=== PATIENT | male | born 1960 | race Caucasian/White ===

== ENCOUNTER 2021-09-14 21:07 | Emergency (ER) | payer MEDICARE, MEDICAID ==
[~2021-09-14] VITALS: Ht 167.6 cm; Wt 50.0 kg
[2021-09-14 21:22] LABS: ABG BASE EXCESS 27.4 mmol/L (-2.0-3.0); ABG CARBOXYHEMOGLOBIN 0.5 % (0.0-1.5); ABG HCO3 46.9 mmol/L (22.0-26.0); ABG METHEMOGLOBIN 0.4 % (0.0-1.5); ABG OXYGEN CONTENT 14.3 mL/dL (15.0-23.0); ABG OXYHEMOGLOBIN 95.1 % (94.0-100.0); ABG PH 7.245 (7.35-7.450); ABG TOTAL HEMOGLOBIN 10.6 G/dL (12.0-18.0); PO2, ARTERIAL BG 93.2 mmHg (79.0-87.0); SOURCE, BLOOD GAS ARTERIAL; TEMPERATURE, FAHRENHEIT, BG 98.6 FAHREN (96.0-98.6)
[2021-09-14 21:24] LABS: ABG PCO2 129 mmHg (35-45); SITE, BLOOD GAS RT RADIAL
[2021-09-14 21:25] LABS: O2 DEVICE,BLOOD GAS VENTILATOR (ROOM AIR); PEEP,BG 5 cm H2O; VT, ABG 350 ml
[2021-09-14 21:26] LABS: BASOPHILS % (AUTO) 0.4 % (0.0-2.0); EOSINOPHILS % (AUTO) 0.5 % (1.0-6.0); HEMATOCRIT 30.4 % (41-53); HEMOGLOBIN 9.8 g/dL (13.5-17.5); LYMPHOCYTES # (AUTO) 0.6 K/uL (1.0-4.8); LYMPHOCYTES % (AUTO) 6.9 % (22.0-44.0); MEAN CORPUSCULAR HEMOGLOBIN 26.6 pg (26.0-34.0); MEAN CORPUSCULAR HGB CONC 32.2 G/dL (31.0-37.0); MEAN CORPUSCULAR VOLUME 83 fL (80-100); MONOCYTES # (AUTO) 0.6 K/uL (0.1-1.0); MONOCYTES % (AUTO) 7.2 % (2.0-9.0); NEUTROPHILS # (AUTO) 6.8 K/uL (1.8-7.7); PLATELET COUNT (AUTO) 198 K/uL (150-450); RED BLOOD CELL COUNT(AUTO) 3.67 MIL/uL (4.50-5.90); RED CELL DISTRIBUTION WIDTH 20.2 % (11.5-14.5)
[2021-09-14 21:32] LABS: CALCIUM, TOTAL 10.6 mg/dL (8.8-10.5); CHLORIDE 92 mmol/L (98-107); CREATININE 0.33 mg/dL (0.60-1.30); GLUCOSE,RANDOM 213 mg/dL (70-110); POTASSIUM 4.3 mmol/L (3.5-5.1); SODIUM SERUM 137 mmol/L (136-145); UREA NITROGEN, BLOOD 23 mg/dL (7-18)
[2021-09-14 21:35] LABS: PROTHROMBIN TIME 10.9 SEC (9.4-11.6)
[2021-09-14 21:41] LABS: ALANINE AMINOTRANSFERASE 17 U/L (12-78); ALBUMIN 2.1 g/dL (3.4-5.0); ALKALINE PHOSPHATASE 116 U/L (46-116); ASPARTATE AMINOTRANSFERASE 18 U/L (15-37); BILIRUBIN,TOTAL 0.2 mg/dL (0.1-1.0); TOTAL PROTEIN, SERUM 7.8 g/dL (6.4-8.2)
[2021-09-14 22:03] LABS: ANION GAP -5 mmol/L (8-16); GLOMERULAR FILTR. RATE CALC > 60 mL/min (>60)
[2021-09-14 22:06] LABS: CARBON DIOXIDE 50 mmol/L (22-29)
[2021-09-14] MEDS ORDERED: ASCO-360 PO (23:04)
[2021-09-14] MEDS ORDERED: PRED10 GT (23:04)
[2021-09-14] MEDS ORDERED: FE RC (23:04)
[2021-09-14] MEDS ORDERED: INSLAN SQ (23:04)
[2021-09-14] MEDS ORDERED: ACET-784 GT (23:04)
[2021-09-14] MEDS ORDERED: SENN8.8S18 GT (23:04)
[2021-09-14] MEDS ORDERED: CIPR1DRO2 AD (23:04)
[2021-09-14] MEDS ORDERED: MOM30 PO (23:04)
[2021-09-14] MEDS ORDERED: FERSL PO (23:04)
[2021-09-14] MEDS ORDERED: MULT-700 PO (23:04)
[2021-09-14] MEDS ORDERED: FAMO20 PO (23:04)
[2021-09-14] MEDS ORDERED: COLL30OI TP (23:04)
[2021-09-14] MEDS ORDERED: METO25 PO (23:04)
[2021-09-14] MEDS ORDERED: MINO50TA GT (23:04)
[2021-09-14] MEDS ORDERED: APIX2.5T GT (23:04)
[2021-09-14] MEDS ORDERED: NYST30CR9 GT (23:04)
[2021-09-14] MEDS ORDERED: EPOE4000 SQ (23:04)
[2021-09-14] MEDS ORDERED: INSU100V SQ (23:04)
[2021-09-14] MEDS ORDERED: ACET-784 PO (23:04)
[2021-09-14] MEDS ORDERED: SCOP1PAT12 TD (23:04)
[2021-09-14] MEDS ORDERED: BISA-151 PO (23:04)
[2021-09-14 23:10] LABS: ABG BASE EXCESS 22.2 mmol/L (-2.0-3.0); ABG CARBOXYHEMOGLOBIN 0.5 % (0.0-1.5); ABG HCO3 42.4 mmol/L (22.0-26.0); ABG METHEMOGLOBIN 0.4 % (0.0-1.5); ABG OXYGEN CONTENT 14.4 mL/dL (15.0-23.0); ABG OXYGEN SATURATION 96.8 % (95.0-98.0); ABG OXYHEMOGLOBIN 95.9 % (94.0-100.0); ABG PCO2 97 mmHg (35-45); ABG PH 7.315 (7.35-7.450); ABG TOTAL HEMOGLOBIN 10.6 G/dL (12.0-18.0); O2 DEVICE,BLOOD GAS VENTILATOR (ROOM AIR); PEEP,BG 5 cm H2O; SITE, BLOOD GAS RT RADIAL; SOURCE, BLOOD GAS ARTERIAL; TEMPERATURE, FAHRENHEIT, BG 98.6 FAHREN (96.0-98.6); VT, ABG 350 ml
[2021-09-15 00:51] VITALS: BP 90/60
== END 2021-09-15 01:02 | disposition home or self-care (01) ==
LOC: EMS 21:10
DX: S31.000A Unspecified open wound of lower back and pelvis without penetration into retroperitoneum, initial encounter (principal); G93.40 Encephalopathy, unspecified; J96.90 Respiratory failure, unspecified, unspecified whether with hypoxia or hypercapnia; Z79.899 Other long term (current) drug therapy; X58.XXXA Exposure to other specified factors, initial encounter; Y93.9 Activity, unspecified; Y92.89 Other specified places as the place of occurrence of the external cause; Y99.8 Other external cause status
CPT/HCPCS: 36600; 51702; 70450; 71045; 80053; 82805; 82962; 84484; 85025; 85610; 93005; 99291; 36415-L1; 36415-TC